=== PATIENT | male | born 1990 | race Caucasian/White ===

== ENCOUNTER 2017-05-09 00:55 | Emergency (ER) | payer SELFPAY ==
[2017-05-09] MEDS ORDERED: Sodium Chloride 0.9% 1,000 ML IV ONE (01:19)
[2017-05-09] MEDS ORDERED: Ondansetron 4 MG/2 ML SDV IV ONE (01:32)
--- NOTE | 2017-05-09 01:37 | EDM.PDOC ---
ED HPI GENERAL MEDICAL PROBLEM - General Chief Complaint: General Stated Complaint: FEELS WARM AND SHAKING Time Seen by Provider: 05/09/17 01:28 Source of Information: Reports: Patient History Limitations: Reports: No Limitations - History of Present Illness INITIAL COMMENTS - FREE TEXT/NARRATIVE: This 26 yo male patient reports to the ED not feeling well. The patient reports he was playing basketball from about 1630 - 1930 when he began to feel hot and lightheaded. The patient reports he has attempted to increase his oral fluid intake, but has started to feel nauseated. The patient reports he did vomit several times. The patient reports he noticed that he stopped sweating while playing basketball. Since the patient stopped playing basketball, the patient reports his whole body has been very shaky and he has continued to feel nauseated. Onset: Today Onset Date: 05/08/17 Onset Time: 19:30 Duration: Constant Location: Reports: Generalized Quality: Reports: Dull Severity: Moderate Improves with: Reports: None Worsens with: Reports: None Associated Symptoms: Reports: Other - Related Data Allergies Allergy/AdvReac Type Severity Reaction Status Date / Time No Known Allergies Allergy Verified 09/29/15 02:00 Home Meds: Home Meds Ibuprofen [Advil] 400 mg PO Q6H PRN 09/29/15 [History] Past Medical History Other Musculoskeletal History: FX : right ankle 2008 /2002 - Past Surgical History Other GI Surgeries/Procedures: 2004 Social & Family History - Tobacco Use Smoking Status *Q: Never Smoker Second Hand Smoke Exposure: Yes - Recreational Drug Use Recreational Drug Use: No ED ROS GENERAL - Review of Systems Review Of Systems: ROS reveals no pertinent complaints other than HPI. ED EXAM, GENERAL - Physical Exam Exam: See Below Exam Limited By: No Limitations General Appearance: Alert, WD/WN, No Apparent Distress Eye Exam: Bilateral Eye: EOMI, Normal Inspection, PERRL Ears: Normal External Exam, Normal Canal, Hearing Grossly Normal, Normal TMs Nose: Normal Inspection, Normal Mucosa, No Blood Throat/Mouth: Normal Inspection, Normal Lips, Normal Teeth, Normal Gums, Normal Oropharynx, Normal Voice, No Airway Compromise Head: Atraumatic, Normocephalic Neck: Normal Inspection, Supple, Non-Tender, Full Range of Motion Respiratory/Chest: No Respiratory Distress, Lungs Clear, Normal Breath Sounds, No Accessory Muscle Use, Chest Non-Tender Cardiovascular: Normal Peripheral Pulses, Regular Rate, Rhythm, No Edema, No Gallop, No JVD, No Murmur, No Rub GI/Abdominal: Normal Bowel Sounds, Soft, Non-Tender, No Organomegaly, No Distention, No Abnormal Bruit, No Mass (Male) Exam: Deferred Rectal (Males) Exam: Deferred Back Exam: Normal Inspection, Full Range of Motion, NT Extremities: Normal Inspection, Normal Range of Motion, Non-Tender, Normal Capillary Refill, No Pedal Edema Neurological: Alert, Oriented, CN II-XII Intact, Normal Cognition, Normal Gait, Normal Reflexes, No Motor/Sensory Deficits Psychiatric: Normal Affect, Normal Mood Skin Exam: Warm, Dry, Intact, Normal Color, No Rash Lymphatic: No Adenopathy Course - Vital Signs Last Recorded V/S: Last Vital Signs Temp 36.7 C 05/09/17 01:10 Pulse 98 05/09/17 01:10 Resp 18 05/09/17 01:10 BP 142/78 H 05/09/17 01:10 Pulse Ox 99 05/09/17 01:10 - Orders/Labs/Meds Orders: Active Orders 24 hr Category Date Time Status Sodium Chloride 0.9% [Normal Saline] 1,000 ml Med 05/09/17 01:19 Active IV .BOLUS Medication Orders Sodium Chloride (Normal Saline) 1,000 mls @ 999 mls/hr IV .BOLUS ONE Stop: 05/09/17 02:19 Last Admin: 05/09/17 01:28 Dose: 999 mls/hr Labs: Laboratory Tests 05/09/17 05/09/17 Range/Units 01:25 01:25 WBC 10.0 (5.0-10.0) 10^3/uL RBC 5.71 (4.6-6.2) 10^6/uL Hgb 15.4 (14.0-18.0) g/dL Hct 44.2 (40.0-54.0) % MCV 77.4 L (80-100) fL MCH 27.0 (27.0-34.0) pg MCHC 34.8 (33.0-35.0) g/dL Plt Count 270 (150-450) 10^3/uL Neut % (Auto) 55.4 (42.2-75.2) % Lymph % (Auto) 33.3 (20.5-50.1) % [place] % (Auto) 9.6 H (2-8) % Eos % (Auto) 1.5 (1.0-3.0) % Baso % (Auto) 0.2 (0.0-1.0) % Sodium 138 (135-145) mmol/L Potassium 3.7 (3.6-5.0) mmol/L Chloride 102 (101-111) mmol/L Carbon Dioxide 23.0 (21.0-31.0) mmol/L Anion Gap 16.7 BUN 17 (7-18) mg/dL Creatinine 1.1 (0.6-1.3) mg/dL Est Cr Clr Drug Dosing TNP Estimated GFR (MDRD) > 60 BUN/Creatinine Ratio 15.45 Glucose 96 (74-105) mg/dL Calcium 9.8 (8.4-10.2) mg/dl Total Bilirubin 0.9 (0.2-1.0) mg/dL AST 78 H (10-42) IU/L ALT 140 H (10-60) IU/L Alkaline Phosphatase 63 (42-121) IU/L Total Protein 8.8 H (6.7-8.2) g/dl Albumin 5.2 (3.2-5.5) g/dl Globulin 3.6 Albumin/Globulin Ratio 1.44 Meds: Medications Generic Name Dose Route Start Last Admin Trade Name Freq PRN Reason Stop Dose Admin Sodium Chloride 1,000 mls @ 999 mls/hr 05/09/17 01:19 05/09/17 01:28 Normal Saline IV 05/09/17 02:19 999 mls/hr .BOLUS ONE Administration Discontinued Medications Generic Name Dose Route Start Last Admin Trade Name Freq PRN Reason Stop Dose Admin Ondansetron HCl 4 mg 05/09/17 01:32 05/09/17 01:55 Zofran IV 05/09/17 01:33 4 mg ONETIME ONE Administration Departure - Departure Time of Disposition: 02:08 Disposition: Home, Self-Care 01 Condition: Fair Clinical Impression: Heat exhaustion Qualifiers: Encounter type: initial encounter Qualified Code(s): T67.5XXA - Heat exhaustion , unspecified, initial encounter - Discharge Information Instructions: Heat Exhaustion Information Forms: ED Department Discharge Care Plan Goals: The patient was advised of the examination and lab results during the visit. The patient was given a liter of IV fluid and Zofran while in the ED. The patient was encouraged to continue to increase his oral fluid intake over the next 24 hours. If the patient has any additional symptoms or concerns, the patient should visit his primary care provider or return to the emergency department. - My Orders Last 24 Hours: My Active Orders 05/09/17 01:19 Sodium Chloride 0.9% [Normal Saline] 1,000 ml IV .BOLUS - Assessment/Plan Last 24 Hours: My Active Orders 05/09/17 01:19 Sodium Chloride 0.9% [Normal Saline] 1,000 ml IV .BOLUS
[2017-05-09 01:48] LABS: CHLORIDE,CL 102 mmol/L (101-111); SODIUM,NA 138 mmol/L (135-145)
[2017-05-09 01:51] VITALS: BP 142/78
== END 2017-05-09 02:17 | disposition home or self-care (01) ==
LOC: DL.ED 00:55
DX: T67.5XXA Heat exhaustion, unspecified, initial encounter (principal); Y93.67 Activity, basketball
CPT/HCPCS: 36415; 80053; 85025; 96365; 96375; 99284; J2405; J7030

== ENCOUNTER 2019-12-26 11:01 | Emergency (ER) | payer OTHER, BC ==
[2019-12-26 11:12] VITALS: BP 141/84; PULSE 72
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
== END 2019-12-26 11:55 | disposition home or self-care (01) ==
LOC: DL.ED 11:01
DX: S46.912A Strain of unspecified muscle, fascia and tendon at shoulder and upper arm level, left arm, initial encounter (principal); V49.40XA Driver injured in collision with unspecified motor vehicles in traffic accident, initial encounter; Y92.410 Unspecified street and highway as the place of occurrence of the external cause
CPT/HCPCS: 73030-LT; 99284-25

== ENCOUNTER 2021-03-05 12:34 | Emergency (ER) | payer BC, OTHER ==
[2021-03-05 12:50] VITALS: BP 131/74; PULSE 67
[2021-03-05 13:20] LABS: ANION GAP 15.9 mEq/L (7-13); CHLORIDE,CL 101 mmol/L (98-107); SODIUM,NA 139 mmol/L (136-145)
--- NOTE | 2021-03-05 13:46 | EDM.PDOC ---
ED HPI GENERAL MEDICAL PROBLEM - General Chief Complaint: Chest Pain Stated Complaint: CHEST PAINS SHORTNESS OF BREATH/NEW MED DOSAGE Time Seen by Provider: 03/05/21 13:00 Source of Information: Reports: Patient, RN, RN Notes Reviewed History Limitations: Reports: No Limitations - History of Present Illness INITIAL COMMENTS - FREE TEXT/NARRATIVE: Patient is a 30-year-old male who presents to ER with complaint of chest pains and shortness of breath, dizziness, blurred vision which occurred abruptly this afternoon. Patient states on Tuesday he was started on Effexor 37.5 mg to take for 3 days. After 3 days was to increase to 75 mg daily. Patient states he did increase to 75 mg today, which was the first day he had taken that dosage. He states he suddenly became short of breath and had chest pains. States he was having difficulty with his thoughts, dizziness, blurred vision. He called his mother to bring him to the ER. Patient states on Tuesday he was also prescribed Cialis, has not used Cialis since Tuesday. Patient denies any other recent illnesses. States he does have a history of anxiety and PTSD. Denies any other health problems, denies any cardiovascular problems. Onset: Today, Sudden Left Chest Pain Score (Numeric/FACES): 3 - Related Data Allergies Allergy/AdvReac Type Severity Reaction Status Date / Time No Known Allergies Allergy Verified 03/05/21 12:48 Home Meds: Home Meds Ibuprofen [Advil] 400 mg PO Q6H PRN 09/29/15 [History] Venlafaxine [Effexor XR] 75 mg PO DAILY 03/05/21 [History] Past Medical History Cardiovascular History: Reports: None Respiratory History: Reports: None Genitourinary History: Reports: None Musculoskeletal History: Reports: None Other Musculoskeletal History: FX : right ankle 2008 /2002 Neurological History: Reports: None Psychiatric History: Reports: None Endocrine/Metabolic History: Reports: None Hematologic History: Reports: None Immunologic History: Reports: None Oncologic (Cancer) History: Reports: None Dermatologic History: Reports: None - Infectious Disease History Infectious Disease History: Reports: Chicken Pox - Past Surgical History Head Surgeries/Procedures: Reports: None HEENT Surgical History: Reports: Tonsillectomy GI Surgical History: Reports: Appendectomy Other GI Surgeries/Procedures: 2004 Social & Family History - Family History Family Medical History: No Pertinent Family History - Tobacco Use Tobacco Use Status *Q: Never Tobacco User - Caffeine Use Caffeine Use: Reports: Coffee - Recreational Drug Use Recreational Drug Use: No ED ROS GENERAL - Review of Systems Review Of Systems: Comprehensive ROS is negative, except as noted in HPI. ED EXAM, GENERAL - Physical Exam Exam: See Below Exam Limited By: No Limitations General Appearance: Alert, WD/WN, No Apparent Distress, Anxious Eye Exam: Bilateral Eye: EOMI, Normal Inspection Ears: Normal External Exam, Hearing Grossly Normal Nose: Normal Inspection Throat/Mouth: Normal Inspection, Normal Voice, No Airway Compromise Head: Atraumatic, Normocephalic Neck: Normal Inspection, Supple, Non-Tender, Full Range of Motion Respiratory/Chest: No Respiratory Distress, Lungs Clear, Normal Breath Sounds, No Accessory Muscle Use, Chest Non-Tender Cardiovascular: Normal Peripheral Pulses, Regular Rate, Rhythm, No Edema, No Gallop, No JVD, No Murmur, No Rub Peripheral Pulses: 2+: Radial (L), Radial (R) GI/Abdominal: Normal Bowel Sounds, Soft, Non-Tender (Male) Exam: Deferred Rectal (Males) Exam: Deferred Back Exam: Normal Inspection, Full Range of Motion, NT Extremities: Normal Inspection, Normal Range of Motion, Non-Tender, Normal Capillary Refill, No Pedal Edema Neurological: Alert, Oriented, CN II-XII Intact, Normal Cognition, Normal Gait, Normal Reflexes, No Motor/Sensory Deficits Psychiatric: Normal Affect, Normal Mood, Anxious Skin Exam: Warm, Dry, Intact, Normal Color, No Rash Lymphatic: No Adenopathy #1 Interpretation EKG Date: 03/05/21 Time: 12:41 Rhythm: NSR Rate (Beats/Min): 69 Pana: Normal P-Wave: Present QRS: Normal ST-T: Normal QT: Normal Comparison: NA - No Prior EKG Course - Vital Signs Last Recorded V/S: Last Vital Signs Temp 99.5 F 03/05/21 12:49 Pulse 67 03/05/21 12:49 Resp 32 H 03/05/21 12:49 BP 131/74 03/05/21 12:49 Pulse Ox 100 03/05/21 12:49 - Orders/Labs/Meds Orders: Active Orders 24 hr Category Date Time Status EKG Documentation Completion [RC] STAT Care 03/05/21 12:50 Active DRUG SCREEN URINE BIORAD [URCHEM] Stat Lab 03/05/21 Ordered UA RFX MARIA GUADALUPE AND CULT IF INDIC [URIN] Stat Lab 03/05/21 Ordered Labs: Laboratory Tests 03/05/21 03/05/21 03/05/21 Range/Units 12:53 12:53 12:53 WBC 7.9 (5.0-10.0) 10^3/uL RBC 5.87 (4.6-6.2) 10^6/uL Hgb 16.0 (14.0-18.0) g/dL Hct 46.3 (40.0-54.0) % MCV 78.9 L (80-100) fL MCH 27.3 (27.0-34.0) pg MCHC 34.6 (33.0-35.0) g/dL Plt Count 325 (150-450) 10^3/uL Neut % (Auto) 57.6 (42.2-75.2) % Lymph % (Auto) 33.9 (20.5-50.1) % [place] % (Auto) 7.2 (2-8) % Eos % (Auto) 1.0 (1.0-3.0) % Baso % (Auto) 0.3 (0.0-1.0) % D-Dimer, Quantitative < 100 (0-400) ng/mL Sodium 139 (136-145) mmol/L Potassium 3.9 (3.5-5.1) mmol/L Chloride 101 (98-107) mmol/L Carbon Dioxide 26 (21-32) mmol/L Anion Gap 15.9 H (7-13) mEq/L BUN 11 (7-18) mg/dL Creatinine 1.12 (0.70-1.30) mg/dL Est Cr Clr Drug Dosing 97.32 mL/min Estimated GFR (MDRD) > 60 BUN/Creatinine Ratio 9.8 (No establ ref range) Glucose 91 (70-99) mg/dL Calcium 9.0 (8.5-10.1) mg/dL Total Bilirubin 0.6 (0.2-1.0) mg/dL AST 12 L (15-37) U/L ALT 50 (16-63) U/L Alkaline Phosphatase 73 (46-116) U/L Troponin I < 0.017 (0.000-0.056) ng/mL Total Protein 7.8 (6.4-8.2) g/dL Albumin 4.8 (3.4-5.0) g/dL Globulin 3.0 Albumin/Globulin Ratio 1.6 - Radiology Interpretation Free Text/Narrative:: Chest x-ray: 1. Normal cardiac silhouette, size and configuration. Left-sided aortic arch, external combatant diver qualified leads 2. No lung mass, hilar lymphadenopathy, focal lobar consolidation i.e. alveolar infiltrate or peripheral "groundglass" interstitial lung densities 3. No pneumothorax or pneumo mediastinum 4. No vascular congestion, alveolar edema, dependent pleural effusion. Chest pain See radiologist report Departure - Departure Time of Disposition: 14:29 Disposition: Home, Self-Care 01 Reason for Transfer *Q: Other Condition: Good Clinical Impression: Acute nonspecific chest pain with low risk of coronary artery disease Instructions: Nonspecific Chest Pain, Adult, [id number] Forms: ED Department Discharge Additional Instructions: Follow up with your primary care facility regarding dosing of your new medication Return to the ER with any worsening of problems Sepsis Event Note (ED) - Evaluation Sepsis Screening Result: No Definite Risk - Focused Exam Vital Signs: Vital Signs Temp Pulse Resp BP Pulse Ox 03/05/21 12:49 99.5 F 67 32 H 131/74 100 - My Orders Last 24 Hours: My Active Orders 03/05/21 DRUG SCREEN URINE BIORAD [URCHEM] Stat UA RFX MARIA GUADALUPE AND CULT IF INDIC [URIN] Stat 03/05/21 12:50 EKG Documentation Completion [RC] STAT - Assessment/Plan Last 24 Hours: My Active Orders 03/05/21 DRUG SCREEN URINE BIORAD [URCHEM] Stat UA RFX MARIA GUADALUPE AND CULT IF INDIC [URIN] Stat 03/05/21 12:50 EKG Documentation Completion [RC] STAT
--- NOTE | 2021-03-05 14:26 | CR ---
EXAMINATION: Chest 1V Frontal SEX: Male AGE: 30 years CLINICAL HISTORY: 30-year-old male chest pain. Interpretation: Negative. 1. Normal cardiac silhouette (size and configuration). Left-sided aortic arch. External monitoring manager leads. 2. No lung mass, hilar lymphadenopathy or focal lobar consolidation i.e. alveolar infiltrate or peripheral "groundglass" interstitial lung densities. 3. No pneumothorax or pneumomediastinum. 4. No vascular congestion, alveolar edema or dependent pleural effusion. chest pain
== END 2021-03-05 14:39 | disposition home or self-care (01) ==
LOC: DL.ED 12:34
DX: R07.9 Chest pain, unspecified (principal); I25.10 Atherosclerotic heart disease of native coronary artery without angina pectoris
CPT/HCPCS: 36415; 71045; 80053; 84484; 85025; 85379; 93005; 93010; 99283; 99285-25